=== PATIENT | female | born 1995 | race Hispanic/Latino ===

== ENCOUNTER 2017-06-18 10:55 | Emergency (ER) | payer BC, OTHER ==
[~2017-06-18] VITALS: Ht 152.4 cm; Wt 83.0 kg
[~2017-06-18 10:55] MED LIST: NORCO 5-325 TA1 EACH PO; PROMETHAZINE HC25 M1 PO; PROTONIX40 MG PO
== END 2017-06-18 12:02 | disposition home or self-care (01) ==
LOC: ED 10:55
DX: O99.511 Diseases of the respiratory system complicating pregnancy, first trimester (principal); J06.9 Acute upper respiratory infection, unspecified; Z3A.01 Less than 8 weeks gestation of pregnancy
CPT/HCPCS: 99282

== ENCOUNTER 2017-08-06 18:49 | Emergency (ER) | payer OTHER, BC ==
[~2017-08-06] VITALS: Ht 152.4 cm; Wt 82.1 kg
[2017-08-06] MEDS ORDERED: PRENATAL VITAM1 EACH PO (19:05)
[2017-08-06] MEDS ORDERED: PROMETHAZINE HC25 M1 PO (19:05)
== END 2017-08-06 20:33 | disposition home or self-care (01) ==
LOC: ED 18:49
DX: O20.9 Hemorrhage in early pregnancy, unspecified (principal); Z79.899 Other long term (current) drug therapy; Z3A.16 16 weeks gestation of pregnancy
CPT/HCPCS: 36415; 76815; 85025; 99284

== ENCOUNTER 2018-01-17 17:16 | Inpatient (IN) | payer OTHER, BC ==
[~2018-01-17 17:16] MED LIST changes: +PRENATAL VITAM1 EACH PO
--- NOTE | 2018-01-18 16:59 | PR ---
[facility] [address] [facility] [place], [place] [address] Signed Progress Notes IP Datetime Report Generated by CPN: 01/18/2018 16:59 PROGRESS NOTES: [id number] Impression: Normal progression of labor Procedures: Artificial ROM Plan: Continue present management; Anticipate Vaginal Delivery VITAL SIGNS: [id number] Vital Signs: Reviewed; Within Normal Limits EXAM: [id number] Dilatation: 4.0 Effacement: 50 Station: -3 Uterine Contractions: every 1-2 minutes MEMBRANES: [id number] Membrane Status: Ruptured Amniotic Fluid Color: Meconium, Light ROM Note: AROM without difficulty Comments: Tolerating contractions at this time, but would like Epidural later; order placed Fetus A: [id number] FHR Baseline: 140 Variability: Moderate 6-25bpm Accelerations: 15X15 Presentation: Vertex Fetus B: [id number] Signing Physician: Dariana Lisa MD Copies: ~ *Electronically Signed* 01/18/18 1659 DARIANA LISA MD PATIENT NAME: ED PATTERSON PROGRESS NOTE DATE OF : 93 PHYSICIAN: DARIANA LISA MD RPT #: [id number] REPORT IS CONFIDENTIAL AND NOT TO BE RELEASED WITHOUT AUTHORIZATION
--- NOTE | 2018-01-19 11:59 | PR ---
[facility] [address] [facility] [place] [address] Signed PP Progress Notes Datetime Report Generated by CPN: 01/19/2018 11:59 SUBJECTIVE: [id number] Pain: Within normal limits Nausea/Vomiting: Denies Vital Signs: [id number] Vital Signs: Reviewed; Within Normal Limits Notable Details: PP Hgb/Hct = 9.7/29.5 EXAM: [id number] Abdomen/Uterus: Normal Lochia: Normal Extremities: Normal IMPRESSION/PLAN/PROCEDURES: [id number] Impression: Normal progression Plan: Continue present management Procedures: None Progress Notes: Doing well, without complaint, minimal bleeding, no fever, no dizziness. Signing Physician: Dariana Lisa MD Copies: ~ *Electronically Signed* 01/19/18 1159 DARIANA LISA MD PATIENT NAME: ED PATTERSON PROGRESS NOTE DATE OF : 93 PHYSICIAN: DARIANA LISA MD RPT #: [id number] REPORT IS CONFIDENTIAL AND NOT TO BE RELEASED WITHOUT AUTHORIZATION
== END 2018-01-20 14:40 | disposition home or self-care (01) | DRG 774 ==
LOC: FBC 01-18 07:51
PROVIDERS: ADMIT General Practice
PROC: 10E0XZZ Delivery of Products of Conception, External Approach (ICD-10-PCS; principal; 2018-01-18)
PROC: 0UQGXZZ Repair Vagina, External Approach (ICD-10-PCS; 2018-01-18)
PROC: 10907ZC Drainage of Amniotic Fluid, Therapeutic from Products of Conception, Via Natural or Artificial Opening (ICD-10-PCS; 2018-01-18)
PROC: 3E0P7VZ Introduction of Hormone into Female Reproductive, Via Natural or Artificial Opening (ICD-10-PCS; 2018-01-18)
PROC: 00HU33Z Insertion of Infusion Device into Spinal Canal, Percutaneous Approach (ICD-10-PCS; 2018-01-18)
PROC: 3E0R3BZ Introduction of Anesthetic Agent into Spinal Canal, Percutaneous Approach (ICD-10-PCS; 2018-01-18)
DX: O72.1 Other immediate postpartum hemorrhage (principal); O71.4 Obstetric high vaginal laceration alone; O77.0 Labor and delivery complicated by meconium in amniotic fluid; Z3A.39 39 weeks gestation of pregnancy; Z37.0 Single live birth
CPT/HCPCS: 01960; 36415; 85027; J2590; J7120

== ENCOUNTER 2020-09-18 16:18 | Emergency (ER) | payer OTHER ==
[~2020-09-18] VITALS: Ht 152.4 cm; Wt 86.2 kg
== END 2020-09-18 16:56 | disposition home or self-care (01) ==
LOC: ED 16:18
DX: S09.90XA Unspecified injury of head, initial encounter (principal); W22.8XXA Striking against or struck by other objects, initial encounter; Y99.0 Civilian activity done for income or pay
CPT/HCPCS: 99283

== ENCOUNTER 2022-01-25 22:36 | Emergency (ER) | payer OTHER ==
[~2022-01-25] VITALS: Ht 152.4 cm; Wt 87.4 kg
[2022-01-25] MEDS ORDERED: ONE-A-DAY PREN1 EAC2 PO (22:55)
[2022-01-25] MEDS ORDERED: AMOX TR-K CLV1 EAC1 PO (23:18)
== END 2022-01-25 23:25 | disposition home or self-care (01) ==
LOC: ED 22:36
DX: O99.713 Diseases of the skin and subcutaneous tissue complicating pregnancy, third trimester (principal); L03.012 Cellulitis of left finger; Z3A.31 31 weeks gestation of pregnancy

== ENCOUNTER 2022-03-23 23:57 | Inpatient (IN) | payer OTHER ==
[~2022-03-23] VITALS: Ht 152.4 cm; Wt 88.5 kg
[~2022-03-23 23:57] MED LIST changes: +AMOX TR-K CLV1 EAC1 PO; +ONE-A-DAY PREN1 EAC2 PO
--- NOTE | 2022-03-24 12:54 | PR ---
[facility] [address] [facility] [place], [place] [address] Signed Progress Notes IP Datetime Report Generated by CPN: 03/24/2022 12:54 PROGRESS NOTES: [id number] Impression: Normal Progression of Labor Plan: Continue Present Management; Anticipate Vaginal Delivery VITAL SIGNS: [id number] Vital Signs: Reviewed; Within Normal Limits EXAM: [id number] Dilatation: 9.0 Effacement: 100 Station: -1 Contractions: every 2 minutes MEMBRANES: [id number] Membranes Status: Ruptured Comments: Comfortable with Epidural. Will try patient on side, hopefully will be able to start pushing soon. FETUS A: [id number] FHR Baseline: 145 Variability: Moderate 6-25bpm Accelerations: 10X10 FETUS B: [id number] Signing Physician: Dariana Lisa MD Copies: ~ *Electronically Signed* 03/24/22 1254 DARIANA LISA MD PATIENT NAME: ED PATTERSON PROGRESS NOTE DATE OF : 93 PHYSICIAN: DARIANA LISA MD RPT #: [id number] REPORT IS CONFIDENTIAL AND NOT TO BE RELEASED WITHOUT AUTHORIZATION
--- NOTE | 2022-03-25 10:26 | PR ---
[facility] [address] [place] [address] Signed PP Progress Notes Datetime Report Generated by CPN: 03/25/2022 10:26 SUBJECTIVE: [id number] Pain: Within Normal Limits Nausea/Vomiting: Denies Vital Signs: [id number] Vital Signs: Reviewed; Within Normal Limits Notable Details: PP Hgb/Hct = 9.1/28.4 EXAM: Ongoing Abdomen/Uterus: Normal Lochia: Normal Extremities: Normal IMPRESSION/PLAN/PROCEDURES: [id number] Impression: Normal Progression Other Impression: PP Anemia Plan: Discharge Procedures: None Progress Notes: Doing well, without complaint, wants to go home. Signing Physician: Dariana Lisa MD Copies: ~ *Electronically Signed* 03/25/22 1026 DARIANA LISA MD PATIENT NAME: ED PATTERSON PROGRESS NOTE DATE OF : 93 PHYSICIAN: DARIANA LISA MD RPT #: [id number] REPORT IS CONFIDENTIAL AND NOT TO BE RELEASED WITHOUT AUTHORIZATION
== END 2022-03-25 15:13 | disposition home or self-care (01) | DRG 807 ==
LOC: FBC 03-24 00:01
PROVIDERS: ADMIT General Practice; ATTEND General Practice
PROC: 10E0XZZ Delivery of Products of Conception, External Approach (ICD-10-PCS; principal; 2022-03-24)
PROC: 0HQ9XZZ Repair Perineum Skin, External Approach (ICD-10-PCS; 2022-03-24)
PROC: 3E0R3BZ Introduction of Anesthetic Agent into Spinal Canal, Percutaneous Approach (ICD-10-PCS; 2022-03-24)
PROC: 00HU33Z Insertion of Infusion Device into Spinal Canal, Percutaneous Approach (ICD-10-PCS; 2022-03-24)
DX: O70.0 First degree perineal laceration during delivery (principal); Z37.0 Single live birth; Z3A.39 39 weeks gestation of pregnancy; Z90.49 Acquired absence of other specified parts of digestive tract; O99.02 Anemia complicating childbirth; D64.9 Anemia, unspecified
CPT/HCPCS: 01960; 36415; 85027; 86850; 86900; 86901; A9270; J2210; J2405; J2590; J3010

== ENCOUNTER 2023-12-01 15:41 | Emergency (ER) | payer OTHER ==
[~2023-12-01] VITALS: Ht 152.4 cm; Wt 78.6 kg
[2023-12-01 16:55] LABS: BASOPHILS 1.6 % (0-2); EOSINOPHILS 2.3 % (0-6); HEMATOCRIT 33.1 % (35.0-50.0); HEMOGLOBIN 10.7 g/dL (12.0-18.0); LYMPHOCYTES 34.5 % (24-44); MCH 25.6 (27-36); MCHC 32.3 g/dl (30-36); MCV 79.3 fl (81-99); MONOCYTES 4.9 % (0-12); NEUTROPHILS 56.7 % (39-80); PLATELET COUNT 250 K/uL (140-440); RBC 4.17 M/ul (4.3-5.7); RDW 15.2 (10.5-15.0)
[2023-12-01 17:17] LABS: ALBUMIN 3.5 g/dL (3.4-5.0); ALBUMIN/GLOBULIN RATIO 0.97 (1.1-2.4); ALKALINE PHOSPHATASE 85 U/L (46-116); ALT (SGPT) 23 U/L (14-59); ANION GAP 11.2 (7-21); AST (SGOT) 15 U/L (15-37); BILIRUBIN, TOTAL 0.3 ng/dL (0.2-1.0); BUN/CREATININE RATIO 19.04 (6.0-28.6); CALCIUM 8.5 mg/dL (8.5-10.1); CARBON DIOXIDE 26 mmol/L (21-32); CHLORIDE 106 mmol/L (98-107); CREATININE, SERUM 0.63 mg/dL (0.55-1.02); GLOMERULAR FILTRATION RATE,EST 122 mL/min (>60); MAGNESIUM 1.9 mg/dL (1.8-2.4); POTASSIUM 4.2 mmol/L (3.5-5.1); PROTEIN, TOTAL 7.1 g/dL (6.4-8.2); TSH, 3RD GENERATION 1.643 uIU/mL (0.358-3.740); UREA NITROGEN 12 mg/dL (7-18)
[2023-12-01 17:34] VITALS: BP 104/56
--- NOTE | 2023-12-02 07:41 | EKG ---
[facility] [address] [facility] [place], [place] [address] Signed Normal sinus rhythm Left axis deviation Abnormal ECG No previous ECGs available Confirmed by Angela Almeida MD ([id number]) on 12/02/2023 7:40:59 AM Electronically Signed By: ANGELA ALMEIDA 12/02/23 0741 PATIENT NAME: ED PATTERSON Electrocardiogram DATE OF : [birth year] PHYSICIAN: ANGELA ALMEIDA REPORT #: [id number] REPORT IS CONFIDENTIAL AND NOT TO BE RELEASED WITHOUT AUTHORIZATION
== END 2023-12-01 17:36 | disposition home or self-care (01) ==
LOC: ED 15:41
PROVIDERS: Emergency Medicine
DX: R60.0 Localized edema (principal)
CPT/HCPCS: 36415; 71045; 80053; 83735; 83880; 84443; 84484; 85025; 93005; 93010; 99284-25

== ENCOUNTER 2025-05-21 00:02 | Inpatient (IN) | payer OTHER ==
[2025-05-21] MEDS ORDERED: OXYTOCIN/0.9 % SODIUM CHLORIDE 30 UNITS/500 ML BAG IV SCH (00:15)
[2025-05-21] MEDS ORDERED: LACTATED RINGER'S 1,000 ML IV PRN (00:15)
[2025-05-21] MEDS ORDERED: LACTATED RINGER'S 1,000 ML IV SCH (00:15)
[2025-05-21] MEDS ORDERED: TERBUTALINE SULFATE 1 MG/ML AMP SUB-Q PRN (00:15)
[2025-05-21] MEDS ORDERED: CALCIUM CARBONATE 500 MG CHEW PO PRN (00:15)
[2025-05-21] MEDS ORDERED: MAGNESIUM HYDROXIDE/AL HYDROX 30 ML CUP PO PRN (00:15)
[2025-05-21] MEDS ORDERED: LIDOCAINE HCL 1% 30 ML SDV INJ PRN (00:15)
[2025-05-21] MEDS ORDERED: miSOPROStol 25 MCG TAB PV SCH (00:15)
[2025-05-21] MEDS ORDERED: PENICILLIN G POTASSIUM 5 MUNITS in SODIUM CHLORIDE 0.9% 100 ML IV ONE (00:15)
[2025-05-21 00:40] LABS: MCH 24.0 PG (25.6-32.2); MCHC 31.7 g/dL (32.2-35.5); MCV 75.7 fL (79.4-94.8); RBC 4.41 M/uL (3.93-5.22)
[2025-05-21 01:04] LABS: AMPHETAMINES, URINE NEGATIVE (NEGATIVE); BARBITURATES, URINE NEGATIVE (NEGATIVE); BENZODIAZEPINE, URINE NEGATIVE (NEGATIVE); CANNABINOID, URINE NEGATIVE (NEGATIVE); COCAINE, URINE NEGATIVE (NEGATIVE); ECSTASY, URINE NEGATIVE (NEGATIVE); FENTANYL, URINE NEGATIVE (NEGATIVE); METHADONE, URINE NEGATIVE (NEGATIVE); OPIATES, URINE NEGATIVE (NEGATIVE); OXYCODONE, URINE NEGATIVE (NEGATIVE); PHENCYCLIDINE, URINE NEGATIVE (NEGATIVE)
[2025-05-21 01:24] LABS: ABO O; ANTIBODY SCREEN NEGATIVE; IS CROSSMATCH COMPATIBLE; RH POSITIVE
[2025-05-21] MEDS ORDERED: PENICILLIN G POTASSIUM 2.5 MUNITS in SODIUM CHLORIDE 0.9% 100 ML IV SCH (04:15)
[2025-05-21] MEDS ORDERED: fentaNYL citrate 100 MCG/2 ML VIAL ONE (06:25)
[2025-05-21] MEDS ORDERED: ROPIVACAINE 0.2% 200 ML BAG ONE (06:26)
[2025-05-21] MEDS ORDERED: LACTATED RINGER'S 2,000 ML IV ONE (06:30)
[2025-05-21] MEDS ORDERED: ePHEDrine sulfate 5 MG/ML SYRINGE IV PRN (06:30)
[2025-05-21] MEDS ORDERED: ROPIVACAINE 0.2% 200 ML BAG EPIDURAL SCH (06:30)
[2025-05-21] MEDS ORDERED: LACTATED RINGER'S 500 ML IV PRN (06:30)
[2025-05-21] MEDS ORDERED: OXYTOCIN/0.9 % SODIUM CHLORIDE 500 ML IV SCH (13:30)
[2025-05-21] MEDS ORDERED: ACETAMINOPHEN 500 MG TAB PO PRN (19:00)
[2025-05-22] MEDS ORDERED: ePHEDrine KIT FOR FBC IV ONE (03:06)
[2025-05-22] MEDS ORDERED: PENICILLIN G POTASSIUM 2.5 MUNITS in SODIUM CHLORIDE 0.9% 100 ML IV SCH ×2 (10:00→11:00)
[2025-05-22] MEDS ORDERED: TRANEXAMIC ACID IN NACL,ISO-OS 0 ML IV ONE (14:15)
[2025-05-22] MEDS ORDERED: BENZOCAINE 60 ML AEROSOL TOP PRN (15:15)
[2025-05-22] MEDS ORDERED: MAGNESIUM HYDROXIDE 30 ML UDC PO PRN (15:15)
[2025-05-22] MEDS ORDERED: MAGNESIUM HYDROXIDE/AL HYDROX 30 ML CUP PO PRN (15:15)
[2025-05-22] MEDS ORDERED: HYDROCORTISONE ACETATE 25 MG SUPP PR PRN (15:15)
[2025-05-22] MEDS ORDERED: WITCH HAZEL/GLYCERIN 1 EA PAD TOP PRN (15:15)
[2025-05-22] MEDS ORDERED: OXYTOCIN/0.9 % SODIUM CHLORIDE 500 ML IV SCH (15:15)
[2025-05-22] MEDS ORDERED: LIDOCAINE 2% VISCOUS 6 ML SYR TOP ONE ×2 (15:15)
[2025-05-22] MEDS ORDERED: CALCIUM CARBONATE 500 MG CHEW PO PRN (15:15)
[2025-05-22] MEDS ORDERED: HYDROCODONE/ACETA 5/325 TAB PO PRN (15:15)
[2025-05-22] MEDS ORDERED: IBUPROFEN 800 MG TAB PO SCH (15:15)
[2025-05-22] MEDS ORDERED: miSOPROStol 200 MCG TAB BUCCAL ONE (15:30)
[2025-05-22] MEDS ORDERED: miSOPROStol 200 MCG TAB PR ONE (15:30)
[2025-05-22] MEDS ORDERED: ACETAMINOPHEN 500 MG TAB PO SCH (18:00)
[2025-05-22] MEDS ORDERED: SENNOSIDES/DOCUSATE 1 EA TAB PO SCH (21:00)
== END 2025-05-23 16:58 | disposition home or self-care (01) | DRG 807 ==
LOC: FBC
PROVIDERS: ADMIT Obstetrics & Gynecology; ATTEND Obstetrics & Gynecology
PROC: 10E0XZZ Delivery of Products of Conception, External Approach (ICD-10-PCS; principal; 2025-05-22)
PROC: 3E0R3BZ Introduction of Anesthetic Agent into Spinal Canal, Percutaneous Approach (ICD-10-PCS; 2025-05-22)
PROC: 00HU33Z Insertion of Infusion Device into Spinal Canal, Percutaneous Approach (ICD-10-PCS; 2025-05-22)
DX: O99.824 Streptococcus B carrier state complicating childbirth (principal); Z37.0 Single live birth; Z3A.39 39 weeks gestation of pregnancy; O71.89 Other specified obstetric trauma
CPT/HCPCS: 01960; 36415; 80307; 85027; 86850; 86900; 86901; 86922; A9270; J2405; J2540; J2795; J7121